=== PATIENT | female | born 1970 | race Caucasian/White ===

== ENCOUNTER 2018-12-31 11:47 | Emergency (ER) | payer SELFPAY ==
[~2018-12-31] VITALS: Ht 157.5 cm; Wt 73.4 kg
[2018-12-31 12:05] VITALS: BP 134/78; PULSE 98; RESP 18; Ht 157.5 cm; Wt 73.4 kg
[2018-12-31] MEDS ORDERED: ACET500C5 PO (14:04)
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
== END 2018-12-31 14:15 | disposition home or self-care (01) ==
LOC: FTE 11:47
DX: M54.6 Pain in thoracic spine (principal)
CPT/HCPCS: 72072